=== PATIENT | female | born 1945 | race Caucasian/White ===

== ENCOUNTER 2023-08-12 23:46 | Emergency (ER) | payer MEDICARE, BC, SELFPAY ==
[2023-08-13 00:03] VITALS: BP 189/81; PULSE 72; RESP 20; TEMP 36.6; O2SAT 97; BMI 23.8
--- NOTE | 2023-08-13 00:48 | ECG_ITS ---
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 Repeat ECG is requested 9120 atypical ECG No previous ECG available for comparison Electronically Signed On 08-13-2023 18:43:59 EDT by SANDY SINGLETON
--- NOTE | 2023-08-13 00:48 | XR_ITS ---
The [address] [address] Patient Name: NAMRATA ALCALA MRN: [id number] date: 1945 Sex: F Assigned Patient Location: ER Current Patient Location: ER Accession/Order Number: [id number] Exam Date: 08/13/2023 00:48 Report Date: 08/13/2023 01:29 At the request of: CAROLIN COX Procedure: XR chest 1V EXAM: XR chest 1V HISTORY: CP COMPARISON: None. TECHNIQUE: One view of the chest was obtained. FINDINGS: A left chest cardiac pacemaker device is in place. The cardiac silhouette is normal in size. There is suspected atelectasis or scarring in the upper right lung. There is no significant pneumothorax or pleural effusion. No acute osseous abnormality is seen. XR/XR chest 1V IMPRESSION: 1. No acute cardiopulmonary abnormality. Electronically authenticated by: Nelida ZAMUDIO Date: 08/13/2023 01:29
[2023-08-13 01:15] LABS: Basophils Absolute Auto 0.1 10^3/uL (0.0-0.1); Basophils Percent Auto 0.8 % (0.2-2.0); Eosinophils Absolute Auto 0.2 10^3/uL (0.0-0.7); Eosinophils Percent Auto 3.2 % (0.9-7.0); Immature Granulocytes Abs Auto 0.03 10^3/uL (0.00-0.03); Immature Granulocytes Pct Auto 0.5 % (0.0-0.5); Lymphocytes Absolute Auto 2.7 10^3/uL (1.2-3.8); Lymphocytes Percent Auto 43.3 % (20.5-60.0); Mean Corpuscular HGB Conc 32.4 g/dL (29.9-35.2); Mean Corpuscular Hemoglobin 32.1 pg (26.7-34.0); Mean Corpuscular Volume 98.9 fL (81.0-99.0); Mean Platelet Volume 11.2 fL (9.5-13.5); Monocytes Absolute Auto 0.7 10^3/uL (0.3-0.8); Monocytes Percent Auto 11.5 % (1.7-12.0); Neutrophils Absolute Auto 2.5 10^3/uL (1.4-6.5); Neutrophils Percent Auto 40.7 % (43.0-75.0); Platelet Count 179 10^3/uL (150-450); Red Blood Count 3.74 10^6/uL (4.20-5.40); Red Cell Distribution Width 13.3 % (11.0-15.0); White Blood Count 6.2 10^3/uL (4.0-11.0)
[2023-08-13 01:19] VITALS: BP 164/80; PULSE 64; RESP 22; O2SAT 98
--- NOTE | 2023-08-13 01:22 | PC.NURSE ---
States had sudden onset of chest pressure. Took her B/P and it was high.
[2023-08-13 01:29] LABS: Anion Gap 10.1; Calcium 8.8 mg/dL (8.5-10.1); Carbon Dioxide 29.5 mmol/L (21.0-32.0); Chloride 105 mmol/L (98-107); Estimated GFR (African America >60 (>=60); Estimated GFR (Non-African Ame >60 (>=60); Glucose 96 mg/dL (74-106); Potassium 3.6 mmol/L (3.5-5.1); Sodium 141 mmol/L (136-145); Troponin I High Sensitivity 26.1 pg/mL (4.0-51.3)
--- NOTE | 2023-08-13 01:38 | PC.NURSE ---
Up to bathroom
--- NOTE | 2023-08-13 01:48 | ED_ITS ---
HPI - Chest Pain General Chief Complaint: Chest Pain Stated Complaint: Blood Pressure High Time Seen by Provider: 08/13/23 00:48 Source: patient Source comment: PATIENT Mode of arrival: walk-in Limitations: no limitations History of Present Illness HPI narrative: [age] she[age] female presented for tightness in her chest which has resolved. It started tonight about 11 PM and it resolved by the time she got here. A month ago she had a pacemaker placed in [place]. 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 She was not short of breath and had no back pain. She doesn't seem to have symptoms now in terms of chest pain but she was concerned about her blood pressure being high because she checked it at home and it was elevated. She's been taking all her medications as prescribed. Related Data Home Medications Medication Instructions Recorded Confirmed aspirin 81 mg capsule 81 mg PO DAILY 08/13/23 08/13/23 losartan 25 mg tablet mg 08/13/23 rosuvastatin 20 mg tablet mg 08/13/23 Allergies Allergy/AdvReac Type Severity Reaction Status Date / Time No Known Allergies Allergy Verified 08/13/23 00:10 Review of Systems ROS Narrative A ten point review of systems is negative except as noted above. PFSH PFSH Social History Smoking status: Never smoker Exam Narrative Exam Narrative: Nurses note and vital signs reviewed and patient is not hypoxic. General: The patient appears well and in no apparent distress. Patient is resting comfortably on cart. Skin: Warm, dry, no pallor noted. There is no rash noted. Head: Normocephalic, atraumatic Eye: Normal conjunctiva, no drainage Ears, Nose, Mouth, and Throat: oral mucosa is moist. Nares patent. Cardiovascular: Regular Rate and Rhythm Respiratory: Patient is in no distress, no accessory muscle use, lungs are clear to auscultation, no wheezing, rales or rhonchi Back: non-tender, no CVA tenderness bilaterally to percussion. GI: soft and nontender Musculoskeletal: The patient has no evidence of calf tenderness, no pitting edema, symmetrical pulses noted bilaterally Neurological: A&O, normal speech Psychiatric: Cooperative Constitutional Vital Signs, click to edit/add: Last Vital Signs Temp 97.8 F 08/13/23 00:03 Pulse 64 10/01/23 01:19 Resp 22 08/13/23 01:19 BP 164/80 H 08/13/23 01:19 Pulse Ox 98 08/13/23 01:19 O2 Del Method Room Air 08/13/23 01:19 Course Vital Signs Vital signs: Vital Signs Temperature 97.8 F 08/13/23 00:03 Pulse Rate 72 08/13/23 00:03 Respiratory Rate 20 08/13/23 00:03 Blood Pressure 189/81 H 08/13/23 00:03 Pulse Oximetry 97 08/13/23 00:03 Oxygen Delivery Method Room Air 08/13/23 00:03 Temperature 97.8 F 08/13/23 00:03 Pulse Rate 64 08/13/23 01:19 Respiratory Rate 22 08/13/23 01:19 Blood Pressure 164/80 H 08/13/23 01:19 Pulse Oximetry 98 08/13/23 01:19 Oxygen Delivery Method Room Air 08/13/23 01:19 MDM - Chest Pain MDM Narrative Medical decision making narrative: her workup including troponin is negative and her blood pressure is normalized without intervention and she remains asymptomatic. 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 Treatment diagnosis and follow-up were discussed with the patient. Differential Diagnosis Differential diagnosis: Likely pneumothorax, unstable angina pectoris, atypical chest pain, st elevation myocardial infarction, costochondritis and chest pain Lab Data Attestation: I reviewed the patient's lab results. Labs: Lab Results 08/13/23 Range/Units 01:05 WBC 6.2 (4.0-11.0) 10^3/uL RBC 3.74 L (4.20-5.40) 10^6/uL Hgb 12.0 (12.0-16.0) g/dL Hct 37.0 (36.0-48.0) % MCV 98.9 (81.0-99.0) fL MCH 32.1 (26.7-34.0) pg MCHC 32.4 (29.9-35.2) g/dL RDW 13.3 (11.0-15.0) % Plt Count 179 (150-450) 10^3/uL MPV 11.2 (9.5-13.5) fL Neut % (Auto) 40.7 L (43.0-75.0) % Lymph % (Auto) 43.3 (20.5-60.0) % Foster % (Auto) 11.5 (1.7-12.0) % Eos % (Auto) 3.2 (0.9-7.0) % Baso % (Auto) 0.8 (0.2-2.0) % Neut # (Auto) 2.5 (1.4-6.5) 10^3/uL Lymph # (Auto) 2.7 (1.2-3.8) 10^3/uL Foster # (Auto) 0.7 (0.3-0.8) 10^3/uL Eos # (Auto) 0.2 (0.0-0.7) 10^3/uL Baso # (Auto) 0.1 (0.0-0.1) 10^3/uL Abs Immat Gran (auto) 0.03 (0.00-0.03) 10^3/uL Imm/Tot Granulo (auto) 0.5 (0.0-0.5) % Sodium 141 (136-145) mmol/L Potassium 3.6 (3.5-5.1) mmol/L Chloride 105 (98-107) mmol/L Carbon Dioxide 29.5 (21.0-32.0) mmol/L Anion Gap 10.1 BUN 19.0 H (7.0-18.0) mg/dL Creatinine 0.73 (0.55-1.02) mg/dL Est GFR ( Amer) >60 (>=60) Est GFR (Non-Af Amer) >60 (>=60) BUN/Creatinine Ratio 26.0 Glucose 96 (74-106) mg/dL Calcium 8.8 (8.5-10.1) mg/dL Troponin I High Sens 26.1 (4.0-51.3) pg/mL Imaging Data Chest x-ray: Radiologist's impression: Procedure: XR chest 1V EXAM: XR chest 1V HISTORY: CP COMPARISON: None. TECHNIQUE: One view of the chest was obtained. FINDINGS: A left chest cardiac pacemaker device is in place. The cardiac silhouette is normal in size. There is suspected atelectasis or scarring in the upper right lung. There is no significant pneumothorax or pleural effusion. No acute osseous abnormality is seen. IMPRESSION: 1. No acute cardiopulmonary abnormality. Electronically authenticated by: Nelida ZAMUDIO Date: 08/13/2023 01:29 ECG Data Attestation: I personally reviewed and interpreted this ECG as follows: (paced rhythm) Heart Score History: Slightly/Non-Suspicious ECG: Normal Age: >65 years Risk Factors: 1 or 2 Risk Factors Troponin: <Normal Limit Total Heart Score Recommendations & Risks:: 3 Discharge Plan Discharge Chief Complaint: Chest Pain Clinical Impression: Chest pain, Hypertension Patient Disposition: Home, Self-Care Time of Disposition Decision: 01:44 Condition: Good Mode of Transportation: Private Vehicle Prescriptions / Home Meds: No Action losartan 25 mg tablet rosuvastatin 20 mg tablet aspirin 81 mg capsule 81 mg PO DAILY Instructions: Chest Pain (ED), Hypertension (ED) Stand Alone Forms: Portal Instructions Referrals: Physician,Non-Staff, MD [Primary Care Provider] - 1 week
[2023-08-13 01:50] VITALS: BP 148/78; PULSE 74; RESP 22
== END 2023-08-13 02:05 | disposition home or self-care (01) ==
PROVIDERS: Emergency Provider Emergency Medicine
DX: R07.9 Chest pain, unspecified (principal); I10 Essential (primary) hypertension; Z95.0 Presence of cardiac pacemaker; Z79.82 Long term (current) use of aspirin; Z79.899 Other long term (current) drug therapy
CPT/HCPCS: 36415; 71045; 80048; 84484; 85025; 93005; 99285

== ENCOUNTER 2025-07-26 07:35 | Outpatient (OUT) | payer MEDICARE, BC, SELFPAY ==
[2025-07-26 08:24] LABS: Hematocrit 38.0 % (36.0-48.0); Hemoglobin 12.9 g/dL (12.0-16.0); Immature Granulocytes Abs Auto 0.02 10^3/uL (0.00-0.03); Immature Granulocytes Pct Auto 0.3 % (0.0-0.5); Lymphocytes Absolute Auto 2.2 10^3/uL (1.2-3.8); Mean Corpuscular HGB Conc 33.9 g/dL (29.9-35.2); Mean Corpuscular Hemoglobin 31.9 pg (26.7-34.0); Mean Corpuscular Volume 94.1 fL (81.0-99.0); Platelet Count 175 10^3/uL (150-450); Red Blood Count 4.04 10^6/uL (4.20-5.40); White Blood Count 5.9 10^3/uL (4.0-11.0)
[2025-07-26 08:42] LABS: Alanine Aminotransferase 30 U/L (14-59); Albumin Globulin Ratio 1.1; Albumin Level 4.1 g/dL (3.4-5.0); Alkaline Phosphatase 77 U/L (46-116); Anion Gap 14.4; Aspartate Amino Transferase 33 U/L (15-37); Blood Urea Nitrogen 27.0 mg/dL (7.0-18.0); Calcium 9.1 mg/dL (8.5-10.1); Carbon Dioxide 28.0 mmol/L (21.0-32.0); Chloride 106 mmol/L (98-107); Cholesterol 154 mg/dL (<=200); Estimated GFR (African America >60 (>=60 mL/min/1.73m^2); Estimated GFR (Non-African Ame >60 (>=60 mL/min/1.73m^2); Globulin 3.7 g/dL; Glucose 105 mg/dL (74-106); HDL Cholesterol 78 mg/dL (40-60); Potassium 4.4 mmol/L (3.5-5.1); Sodium 144 mmol/L (136-145); Thyroid Stimulating Hormone 2.284 uIU/mL (0.358-3.740); Total Protein 7.8 g/dL (6.4-8.2); Triglycerides 38 mg/dL (<=150); VLDL CHOLESTEROL 7.6 mg/dL
[2025-07-28 01:06] LABS: Vitamin B12 802 pg/mL (232-1245)
== END 2025-07-26 07:36 | disposition home or self-care (01) ==
PROVIDERS: PCP Nurse Practitioner; Visit Provider Nurse Practitioner
DX: Z00.00 Encounter for general adult medical examination without abnormal findings (principal); Z13.220 Encounter for screening for lipoid disorders; R73.09 Other abnormal glucose; I10 Essential (primary) hypertension; E78.00 Pure hypercholesterolemia, unspecified; Z13.29 Encounter for screening for other suspected endocrine disorder; R53.83 Other fatigue; F41.9 Anxiety disorder, unspecified; Z13.21 Encounter for screening for nutritional disorder; E55.9 Vitamin D deficiency, unspecified
CPT/HCPCS: 36415; 80053; 80061; 82306; 82607; 84439; 84443; 85025

== ENCOUNTER 2025-10-03 19:25 | Emergency (ER) | payer MEDICARE, BC, SELFPAY ==
[2025-10-03 19:39] VITALS: BP 148/61; PULSE 80; TEMP 36.9; O2SAT 100; BMI 24.4
--- NOTE | 2025-10-03 21:43 | ED.GENADUL1 ---
HPI HPI - General Adult General Chief complaint: Skin/Abscess/Foreign Body Stated complaint: TICK BITE Time Seen by Provider: 10/03/25 21:41 Source: patient Mode of arrival: walk-in Limitations: no limitations History of Present Illness HPI narrative: 80-year-old female presents here with a chief complaint of a tick bite to the left breast, chest wall. Patient has small area of erythema noted where she pulled the chest skin to get a the tick removed. Patient presents here with a tick in an envelope the head is noted. She does not know how long the tick was stuck on her skin. She is otherwise healthy no complaints. Related Data Home Medications ?Medication ?Instructions ?Recorded ?Confirmed aspirin 81 mg capsule 81 mg PO DAILY 08/13/23 10/03/25 losartan 25 mg tablet 25 mg PO BID 08/13/23 10/03/25 rosuvastatin 20 mg tablet 20 mg PO QDAY 08/13/23 10/03/25 amlodipine 5 mg tablet 5 mg PO QDAY 10/03/25 10/03/25 Allergies Allergy/AdvReac Type Severity Reaction Status Date / Time No Known Drug Allergies Allergy Verified 10/03/25 19:37 Opioid HPI Opioid Management Most Recent Opioid Data: Last Pain Scale 5 10/03/25, 21:35 Review of Systems ROS Status of ROS 10 or more systems reviewed and unremarkable except as noted in history and below [facility] Medical History (Updated 10/03/25 @ 21:42 by Laure Telles) Pacemaker ?Z95.0 - Presence of cardiac pacemaker (ICD-10) Social History Smoking status: Never smoker Little interest or pleasure in doing things: not at all Feeling down, depressed, or hopeless: not at all Exam Narrative Exam Narrative: All Systems are negative except as noted/marked.All systems reviewed and otherwise negative Nurses note and vital signs reviewed and patient is not hypoxic. General: The patient appears well and in no apparent distress. Patient is resting comfortably on cart. Skin: Warm, dry, no pallor noted. redness to skin s/p tick bite Head: Normocephalic, atraumatic Eye: Normal conjunctiva, no drainage, EOMI. PERRL Ears, Nose, Mouth, and Throat: oral mucosa is moist. Nares patent. Mouth without vesicles. Ear canals patent. Tm's without Erythema Cardiovascular: Regular Rate and Rhythm Musculoskeletal: The patient has no evidence of calf tenderness, no pitting edema, symmetrical pulses noted bilaterally Neurological: A&O x4, normal speech Psychiatric: Cooperative Constitutional Vital Signs, click to edit/add: Last Vital Signs Temp 98.5 F 10/03/25 19:39 Pulse 80 10/03/25 19:39 Resp 12 10/03/25 19:39 BP 148/61 H 10/03/25 19:39 Pulse Ox 100 10/03/25 19:39 O2 Del Method Room Air 10/03/25 19:39 Course Vital Signs Vital signs: Vital Signs Temperature 98.5 F 10/03/25 19:39 Pulse Rate 80 10/03/25 19:39 Respiratory Rate 12 10/03/25 19:39 Blood Pressure 148/61 H 10/03/25 19:39 Pulse Oximetry 100 10/03/25 19:39 Oxygen Delivery Method Room Air 10/03/25 19:39 Temperature 98.5 F 10/03/25 19:39 Pulse Rate 80 10/03/25 19:39 Respiratory Rate 12 10/03/25 19:39 Blood Pressure 148/61 H 10/03/25 19:39 Pulse Oximetry 100 10/03/25 19:39 Oxygen Delivery Method Room Air 10/03/25 19:39 Medical Decision Making MDM Narrative Medical decision making narrative: 80-year-old female presents here with a chief complaint of a tick bite to the left breast, chest wall. Patient has small area of erythema noted where she pulled the chest skin to get a the tick removed. Patient presents here with a tick in an envelope the head is noted. She does not know how long the tick was stuck on her skin. She is otherwise healthy no complaints. Patient presented here chief complaint of tick bite to her chest wall. Small area erythema noted to the chest wall where she removed the tick. She did remove the tick in its entirety and she brought it in an envelope to show me. Patient does not know how long the tick was embedded in her skin and it appeared that when she removed it. Patiently placed on 200 mg of doxycycline x 1. Patient will follow-up with primary care physician as needed. Patient agrees with plan of care. Differential Diagnosis Differential Diagnosis: tick bite Medical Records Medical records reviewed: Yes I reviewed the patient's medical records Discharge Plan Discharge Chief Complaint: Skin/Abscess/Foreign Body Clinical Impression: Tick bite Patient Disposition: Home, Self-Care Time of Disposition Decision: 21:42 Condition: Good Prescriptions / Home Meds: No Action losartan 25 mg tablet 25 mg PO BID rosuvastatin 20 mg tablet 20 mg PO QDAY aspirin 81 mg capsule 81 mg PO DAILY amlodipine 5 mg tablet 5 mg PO QDAY Print Language: Albanian Instructions: Tick Bite (ED) Referrals: Anel Head NP [Primary Care Provider] - 1 week Discharge Date/Time: 10/03/25 21:58
[2025-10-03] MEDS: DOXYCYCLINE MONOHYDRATE 100 MG CAPSULE 200 MG PO (21:49)
--- OUTSIDE RECORDS SUMMARY | 2025-10-03 21:49 | XMS_ITS | Clinical Summary ---
Author Organization [employer] [facility] tem Address [id number] [address] 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 Role Phone Unavailable Primary Care Provider Unavailabl e Social History Tobacco UseTypesPacks/DayYears UsedDateSmoking Tobacco: Never Assessed CommentsUnknownSex and Gender InformationValueDate RecordedSex Assigned at Not on fileLegal GltBgtsyh82/14/2023 9:08 AM EDTGender IdentityNot on fileSexual OrientationNot on file Plan of Treatment Health MaintenanceDue DateLast DoneCommentsDepression Bmbqmjviu54/18/1958Tobacco Hhpghbwdm49/18/1958Fall Risk Ojwnigqpz99/18/2011Zoster (Shingles) Vaccine (2 of 3)RSV ( or age 60+ yrs) (1 - 1-dose 75+ series) 2021OVID-19 Vaccine ( - 2024- season), 03/15/2021, 02/22/2021Influenza Ggfhqmt69DTaP,Tdap and Td Vaccines (2 - Td or Tdap) Medical Devices Not on file Insurance * Guarantor: Nabeel Mallory TypeRelation to PatientDate of BirthPhone Billing AddressPersonal/VlzpydRrre1945 [address] [address]
--- OUTSIDE RECORDS SUMMARY | 2025-10-03 21:49 | XMS_ITS | Clinical Summary ---
Author Organization [facility] Address [facility] [place] [id number] Care Team Providers Care Coffee Maker Name Role Phone Francois Pérez MD Primary Care Provider [phone] Will Pearce MD Unavailable [phone] Allergies No known active allergies Medications MedicationSigDispense QuantityRefillsLast FilledStart DateEnd DateStatus aspirin 81 mg chewable tablet Take 1 tablet by mouth once daily. 30 tablet 07/13/2023 3:19 PM EDT07/13/2023ctive amLODIPine (NORVASC) 5 mg tablet Take 1 tablet by mouth once daily. 90 tablet ctive losartan (COZAAR) 50 mg tablet Indications:Hypertension, essentialTake 1 tablet by mouth two times a day. 180 tablet ctive rosuvastatin (CRESTOR) 20 mg tablet Take 1 tablet by mouth daily at bedtime. 90 tablet /ctive Active Problems ProblemNoted DateDiagnosed DateArterial cinjmhsivw92/27/2023ilateral carotid artery ofouogyz58/27/2023rterial bruit07/09/20237937Ojwnndomnttwwhonsvjh77/27/2023 Hypertension, bulnhcqno09/27/2023V block07/06/2023OE (dyspnea on exertion) 07/06/2023Other axbaryx1507/06/2023Mediastinal vqasxvhchd99/24/2023Hypertension 07/06/2023 Encounters DateTypeDepartmentCare OdcvHqgkeskzfdc33/25/2025Orders Only Pseud[place] [address] Will Pearce MD from Last 3 Months Family History Medical HistoryRelationCommentsProstate CancerBrother 1Heart diseaseFather Prostate CancerFatheranginaFatherpacemakerFatherBreast CancerMotherDiabetes MotherLung CancerMothersmokerMotherRelationStatusCommentsBrother 1AliveBrother 2 AliveBrother 3AliveFatherDeceasedMaternal GrandfatherDeceasedMaternal GrandmotherDeceasedMotherDeceasedPaternal GrandfatherDeceasedPaternal GrandmotherDeceasedSisterAlive Social History Tobacco UseTypesPacks/DayYears UsedDateSmoking Tobacco: NeverPassive Smoke Exposure: PastSmokeless Tobacco: Never Tobacco Cessation:Counseling Given: Not Answered Alcohol UseStandard Drinks/WeekCommentsYes0 (1 standard drink = 0.6 oz pure alcohol)rarelyPHQ-2AnswerDate RecordedPHQ-2 hnweg130/03/2024Area Deprivation IndexAnswerDate RecordedNational Score (1-100), lower number is lower risk60 07/06/2023State Score (1-10), lower number is lower pfpe3483Data from: https://www.neighborhoodatlas.medicine.[facility].edu/. Last address used for [address] [place] [address]CommentsNoSex and Gender Information ValueDate RecordedSex Assigned at BirthNot on fileLegal HtxLklvoj73/02/2012 9:08 AM ESTGender IdentityNot on fileSexual OrientationNot on file Last Filed Vital Signs Vital SignReadingTime TakenCommentsBlood Qmohtlba444/4605 2:26 PM EDT Gbavj5163 2:26 PM QTLCileiuztydk08 ??C (96.8 ??F)12/05/2023 9:05 AM EST Respiratory Xwyq034912/05/2023 9:55 AM ESTOxygen Xrbxjhpdmg69%04/09/2025 2:23 PM EDTInhaled Oxygen Concentration--Fvgsfg13 kg (141 lb 1.6 oz)04/09/2025 2:23 PM ELRCijnnt831.6 cm (5' 4 )04/09/2025 12:38 PM EDTBody Mass Index24.22004/09/2025 12:38 PM EDT Plan of Treatment DateTypeDepartmentCare Team (Latest Contact Info)Miyjwytzoel39/17/2025 10:45 AM ESTProcedure Cardiology [address] [place] [phone] Hypertension, acrqpxqvq01/17/2025 12:00 PM ESTOffice Visit Cardiology [address] [phone] Merlin Haynes MD [address] [facility] [address] [place] [phone] DX: Hypertension, jnbyxeoya51/19/2025 7:00 AM ESTNurse Visit Cardiology [address] [place], [place] [phone] SLS/PSR 07-811 Chart Review Y3 #1Health MaintenanceDue DateLast DoneComments Annual PCP Team Chronic Disease Visit1964Anxiety Tjlzzzfmp64/18/1964 Depression Cfschnqqd66/18/1964Hepatitis C Eslarbvrz22/18/1964Medicare Annual Wellness Visit09/13/2011Shingrix Vaccine (2 of 3)Advance Directive Zfqacuibqk75/01/2025Covid-19 Vaccine ( season)2025 10/10/2021, 03/15/2021, 02/22/2021Influenza Vaccine (#1)/05/2016 DTaP,Tdap,Td Vaccine (2 - Td or Tdap)Diabetes Screening 8004/09/2025, 10/16/2024, 07/09/2024, Additional history existsBone Density DrlvqzoidUtfgswmwm14/12/2021, 01/02/2019Pneumococcal Vaccine: 50+ Lgczexwbb02/12/2023, 07/21/2014RSV RlbbuilDmukkxeey89/26/2025 Goals GoalPatient Goal TypeAssociated ProblemsRecent ProgressPatient-Stated?Author Blood Pressure < 130/80 Blood Axyrcutw227/46(04/09/2025 2:26 PM EDT)Nicolacorneliusanna marie [employer] ImplantedTypeAreaManufacturerDevice IdentifierShelf Expiration DateModel / Serial / [id number] Selectsecure Mri Surescan [id number] Implanted:07/12/2023 (Quantity not on file)LeadMEDTRONIC [id number] SELECTSECURE MRI SURESCAN / [id number] / [id number] Capsurefix Novus [id number] Implanted:07/12/2023 (Quantity not on file)LeadMEDTRONIC [id number] CAPSUREFIX NOVUS / [id number] / Pacemaker-[id number] Mary [place] Xt Dr [id number] Implanted:07/12/2023 (Quantity not on file)PacemakerMEDTRONIC [id number] [place] XT [address] TAMAYO / [id number] / Procedures Procedure NamePriorityDate/TimeAssociated DiagnosisCommentsREM INTERROG PM/LDLS PM <90 D PHYS/TAZRsvvztt48/25/2025 1:39 AM EDT COMPREHENSIVE METABOLIC DUWBWMtdaxzr53/28/2025 8:37 AM EDT Fibromuscular dysplasia from Last 3 Months or Most Recently Relevant to Health Maintenance Results * CARDIAC IMPLANTABLE DEVICE CHECK REMOTE (07/07/2025 1:39 AM EDT)ComponentValue Ref RangeTest MethodAnalysis TimePerformed AtPathologist SignatureDate Time Interrogation [id number] CARDIACType Interrogation Session RemoteMURJ CARDIACImplantable Pulse Generator ManufacturerMedtronicMURJ CARDIACImplantable Pulse Generator TypePacemakerMURJ CARDIACImplantable Pulse Generator ModelAzure XT DR TAMAYO [id number] CARDIACImplantable Pulse Generator Serial [id number] CARDIACImplantable Pulse Generator Implant Date 11704774DACW CARDIACBattery Remaining Joixingdx428.0MURJ CARDIACBattery Voltage3.000MURJ CARDIACBattery HEAD SWAMPER Trigger2.625MURJ CARDIACBattery StatusOK MURJ CARDIACBrady Statistic RA Percent Paced9.86MURJ CARDIACBrady Statistic RV Percent Paced99.97MURJ CARDIACAtrial Tachy Statistic AT/AF Lostine Percent0.00 MURJ CARDIACLead Channel Sensing Intrinsic Amplitude1.250MURJ CARDIACLead Channel Setting Sensing Sensitivity0.30MURJ CARDIACLead Channel Impedance Xnlzr797VPHZ CARDIACLead Channel Pacing Threshold Amplitude0.375MURJ CARDIAC Lead Channel Pacing Threshold Pulse Width0.4MURJ CARDIACLead Channel Measurements Date and Looh8119-70-69RXIK CARDIACLead Channel Setting Pacing Amplitude1.500MURJ CARDIACLead Channel Setting Pacing Pulse Width0.4MURJ CARDIACLead Channel Sensing Intrinsic Drtsyoisp40.625MURJ CARDIACLead Channel Setting Sensing Sensitivity0.90MURJ CARDIACLead Channel Impedance Vbwzk573WRMU CARDIACLead Channel Pacing Threshold Amplitude1.250MURJ CARDIACLead Channel Pacing Threshold Pulse Width0.4MURJ CARDIACLead Channel Measurements Date and Rzng3847-90-04LDED CARDIACLead Channel Setting Pacing Amplitude2.500MURJ CARDIACLead Channel Setting Pacing Pulse Width0.4MURJ CARDIACBrady Setting Mode (NBG Code)DDDMURJ CARDIACBrady Setting Lower Rate Cwoqp65CYFE CARDIAC Trav Setting AT Mode Switch Hibk405DSWK CARDIACBrady Setting Maximum Tracking Usft079IXRC CARDIACBrady Setting Maximum Sensor Ornm397MPEU CARDIACBrady Setting PAV Qtawh662UFOA CARDIACBrady Setting JUDITH Itmaw601RBMW CARDIACLead Channel Setting Sensing PolarityBipolarMURJ CARDIACLead Channel Setting Sensing PolarityBipolarMURJ CARDIACLead Channel Setting Pacing PolarityBipolar MURJ CARDIACLead Channel Setting Pacing PolarityUnipolarMURJ CARDIACLead Channel Pacing Threshold PolarityBipolarMURJ CARDIACLead Channel Pacing Threshold PolarityUnipolarMURJ CARDIACZone Setting Type CategoryAT/AFMURJ CARDIACRate 1171MURJ CARDIACTherapiesSome Rx OffMURJ CARDIACZone Setting StatusMonitorMURJ CARDIACZone KW5APEG CARDIACZone Setting Type CategoryVTMURJ CARDIACRate 1150MURJ CARDIACZone Setting StatusENABLEDMURJ CARDIACZone VC4GWRY CARDIACImplantable Lead ManufacturerMedtronicMURJ CARDIACImplantable Lead Agwkh3427 SelectSecure MRI SureScanMURJ CARDIACImplantable Lead LocationRight VentricleMURJ CARDIACImplantable Lead Connection StatusConnectedMURJ CARDIAC Implantable Lead Serial AunyctOAS685924VQNSQ CARDIACImplantable Lead Implant [id number] CARDIACImplantable Lead ManufacturerMedtronicMURJ CARDIAC Implantable Lead Tlrax3193 CapSureFix NovusMURJ CARDIACImplantable Lead LocationRight AtriumMURJ CARDIACImplantable Lead Connection StatusConnected MURJ CARDIACImplantable Lead Serial AlxhwnKJLTCC233TTZUX CARDIACImplantable Lead Implant [id number] CARDIACSpecimen (Source)Anatomical Location / LateralityCollection Method / VolumeCollection TimeReceived Time07/07/2025 1:39 AM EDT Narrative MURJ CARDIAC - 07/31/2025 3:43 PM EDT Normal Remote: No Events * Normal Device Function * Alerts or events: None * Battery: OK, 8.42 yrs * Sensing, impedance and thresholds reviewed * Programmed parameters reviewed * Presenting rhythm reviewed AP/EMBOSSING PRESS OPERATOR * Heart Rate Histograms reviewed * No significant changes noted AP 9.9% EMBOSSING PRESS OPERATOR 100% NOTE TO PROVIDERS: Cardiac Implanted Devices Flowsheets contain detailed Programming and Evaluation data. Full Docket/PDF found below under Scanned Documents . Procedure Note Will Pearce MD - 07/31/2025 Normal Remote: No Events * Normal Device Function * Alerts or events: None * Battery: OK, 8.42 yrs * Sensing, impedance and thresholds reviewed * Programmed parameters reviewed * Presenting rhythm reviewed AP/EMBOSSING PRESS OPERATOR * Heart Rate Histograms reviewed * No significant changes noted AP 9.9% EMBOSSING PRESS OPERATOR 100% NOTE TO PROVIDERS: Cardiac Implanted Devices Flowsheets contain detailed Programming and Evaluation data. Full Docket/PDF found below under Scanned Documents . Authorizing ProviderResult TypeResult StatusOuskim Pearce MDCARDIOLOGYFinal ResultPerforming OrganizationAddressCity/State/ZIP CodePhone Number MURJ CARDIAC * COMPREHENSIVE METABOLIC PANEL (04/09/2025 8:37 AM EDT)ComponentValueRef Range Test MethodAnalysis TimePerformed AtPathologist SignatureProtein, Total6.96.3 - 8.0 g/dL04/09/2025 11:27 AM [facility] LABAlbumin4.43.9 - 4.9 g/dL04/09/2025 11:27 AM [facility] LABCalcium, Total9.98.5 - 10.2 mg/dL04/09/2025 11:27 AM [facility] LABBilirubin, Total0.50.2 - 1.3 mg/dL04/09/2025 11:27 AM [facility] LABAlkaline Lmvnypnudyw3749 - 123 U/L04/09/2025 11:27 AM [facility] UFEXXM2285 - 35 U/L04/09/2025 11:27 AM [facility] SFQKNC390 - 38 U/L04/09/2025 11:27 AM [facility] ZVYAhgtfgc3883 - 99 mg/dL04/09/2025 11:27 AM [facility] LABComment: The [place] Diabetes Association (ADA) provides guidance for cutoff values for fasting glucose andrandom glucose. The ADA defines fasting as no caloric intake for at least 8 hours. Fasting plasma glucose results between 100 to 125 mg/dL indicate increased risk for diabetes (prediabetes). Fasting plasma glucose results greater than or equal to 126 mg/dL meet the criteria for diagnosis of diabetes. In the absence of unequivocal hyperglycemia, results should be confirmed by repeat testing. In a patient with classic symptoms of hyperglycemia or hyperglycemic crisis, random plasma glucose results greater than or equal to 200 mg/dL meet the criteria for diagnosis of diabetes. Reference: Standards of Medical Care in Diabetes 2016, [place] Diabetes Association. Diabetes Care. 2016.39(Suppl 1). BCL964 - 21 mg/dL04/09/2025 11:27 AM [facility] Creatinine0.740.58 - 0.96 mg/dL04/09/2025 11:27 AM [facility] BLQWbyhrm155610 - 144 mmol/L04/09/2025 11:27 AM [facility] LABPotassium4.93.7 - 5.1 mmol/L04/09/2025 11:27 AM [facility] ZSIQqviwkay11181 - 107 mmol/L04/09/2025 11:27 AM [facility] HISHB19047 - 30 mmol/L04/09/2025 11:27 AM [facility] LABAnion Xdh987 - 15 mmol/L04/09/2025 11:27 AM [facility] LABEstimated Glomerular Filtration Rate83>=60 mL/min/1.73m 04/09/2025 11:27 AM [facility] LABComment:Estimated Glomerular Filtration Rate (eGFR) is calculated using the 2020 CKD-EPI creatinine equation. This equation utilizes serum creatinine, sex, and age as parameters. The creatinine assay has traceable calibration to isotope dilution- mass spectrometry. Refer to KDIGO guidelines for clinical interpretation. In patients with unstable renal function, e.g. those with acute kidney injury, the eGFRmay not accurately reflect actual GFR.Specimen (Source)Anatomical Location / LateralityCollection Method / VolumeCollection TimeReceived TimeBloodBLOOD SPECIMEN / UnknownVenipuncture / Qobxbuq1504/09/2025 8:37 AM EDT04/09/2025 8:37 AM EDT Narrative Authorizing ProviderResult TypeResult StatusNatalia Danita Sierra MD LABORATORYFinal ResultPerforming OrganizationAddressCity/State/ZIP CodePhone Number [facility] [address] [place] [address], from Last 3 Months or Most Recently Relevant to Health Maintenance Insurance * Guarantor: Rachel Ceballos TypeRelation to PatientDate of BirthPhone Billing AddressPersonal/ShpfdiNhuo1945 [address] [place] [phone] Advance Directives * Full Code (Latest Code Status on File) Date ActivatedDate InactivatedComments07/06/2023 7:11 AM07/13/2023 6:14 PMQuestion AnswerCommentsFull Code Order Discussed With:* Patient Care Teams Team MemberRelationshipSpecialtyStart DateEnd Date Francois Pérez MD PCP - GeneralFamily Medicine07/06/23 Will Pearce MD [address] [place] [address] Primary Staff PhysicianCardiology04/30/24
--- OUTSIDE RECORDS SUMMARY | 2025-10-03 21:49 | XMS_ITS | Clinical Summary ---
Author Organization [facility] Address [address] [place] [address] Phone Care Team Providers Care Information Clerk Brokerage Name Role Phone Francois Pérez MD Primary Care Provider Social History Tobacco UseTypesPacks/DayYears UsedDateSmoking Tobacco: Never Assessed CommentsUnknownSex and Gender InformationValueDate RecordedSex Assigned at Not on fileLegal PyfScyiey26/26/2022 4:38 AM ESTGender IdentityNot on fileSexual OrientationNot on file Plan of Treatment Not on file Care Teams Team MemberRelationshipSpecialtyStart DateEnd Date Francois Pérez MD [address] [place] [phone] PCP - Qcnfnaw92/11/18
--- OUTSIDE RECORDS SUMMARY | 2025-10-03 21:49 | XMS_ITS | Clinical Summary ---
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 Name Role Phone Francois Pérez MD Primary Care Provider Francois Pérez MD Unavailable [phone] Anel Head NP Unavailable [phone] Allergies No known active allergies Medications MedicationSigDispense QuantityRefillsLast FilledStart DateEnd DateStatus B Complex Vitamins (B COMPLEX 1 PO) B ComplexActive Multiple Vitamins-Minerals (PRESERVISION/LUTEIN PO) PreserVision/LuteinActive aspirin 81 MG chewable tablet Chew 81 mg in the morning.07/13/2023ctive clobetasol (Temovate) 0.05 % ointment Indications:Psoriasis vulgarisApply to affected areas, up to twice a day when flared, do not use one the face, groin, or underarms, 30 day supply 30 g 1104Active amLODIPine (Norvasc) 5 MG tablet Indications:Hypertension, essentialTake 1 tablet (5 mg) by mouth in the morning. 90 tablet ctive losartan (Cozaar) 50 MG tablet Indications:Hypertension, essentialTake 1 tablet (50 mg) by mouth in the morning and 1 tablet (50 mg) before bedtime. 180 tablet ctive rosuvastatin (Crestor) 20 MG tablet Indications:HypercholesterolemiaTake 1 tablet (20 mg) by mouth at bedtime 90 tablet 309/ctive Active Problems ProblemNoted DateDiagnosed DateFibromuscular ikzzfbpgr35/04/2024 Msdryggasffermlkvdgt27/27/2023Hypertension, luhdjgkoi88/24/2023iverticular szzfohg5304/25/20233406Jyghzlonlx22/13/2023Vitamin D xhfaymxhug65/13/2023 Resolved Problems ProblemNoted DateDiagnosed DateResolved DateAtrophy of jjvwmj6604/25/2023 07/13/2023Female wkgsgbtgk19Fibrocystic breast changes soriasis azhbeduq05 Encounters DateTypeDepartmentCare CqnhCszdzvjatdh46/16/2025Results Follow-Up [facility] [address] [place] [phone] Anel Head NP POCT urinalysis dipstick manually resulted, Lipid panel, Comprehensive metabolic panel, Additional followed-up results: bstract [facility] [address] [place] [phone] Francois Pérez MD 07/16/2025 10:00 AM EDTOffice Visit [facility] [address] [place] [phone] Anel Head NP Encounter for vitamin deficiency screening (Primary Dx); Urinary frequency; Screening for lipid disorders; Adult general medical examination; Screening for thyroid disorder; Elevated glucose; Other fatigue; Hypertension, essential ; Hypercholesterolemia ; Vitamin D deficiency; Anxiety; Impaired fasting glucose; Routine general medical examination at health care ucimpxqr13/03/2025amboo flowsheet [facility] [address] [place] [phone] Anel Head NP 07/16/20253817Imxbzj69/02/5353Gaemqe92/26/2025Telephone [facility] [address] [place] [phone] Anel Head NP Medicare Annual Wellness Visit Subsequentfrom Last 3 Months Immunizations ImmunizationAdministration DatesNext DueInfluenza, High Dose Seasonal, Preservative Free08/19/2016Pneumococcal Conjugate PCV 3Pneumococcal Polysaccharide [id number], recombinant, protein subunit RSVpreF, adjuvant reconstitu, 120mcg/0.5mL, PF (Arexvy)12/08/2024Tdap1Zoster, live08/17/2016 Family History Medical HistoryRelationNameCommentsProstate cancerFatherBreast cancerMotherMary CullenLung cancerMotherMary CullenStrokeMotherMary CullenRelationNameStatus PjhgpspdYdslccqPeslgx0WpcmbevlOskroKrdzizAifluuemVsckuoDmfq CullenDeceasedSister AliveSonAlivex3 Social History Tobacco UseTypesPacks/DayYears UsedDateSmoking Tobacco: NeverSmokeless Tobacco: Never Tobacco Cessation:Counseling Given: Not Answered Comments:None Alcohol UseStandard Drinks/WeekCommentsNot Currently0 (1 standard drink = 0.6 oz pure alcohol)[id number] Health LiteracyAnswerDate RecordedHow often do you need to have someone help you when you read instructions, pamphlets, or other written material from your doctor or pharmacy?Never07/15/2025Humiliation, Afraid, Rape, and Kick questionnaireAnswerDate RecordedWithin the last year, have you been afraid of your partner or ex-partner?No07/15/2025Within the last year, have you been humiliated or emotionally abused in other ways by your partner or ex-partner?No07/15/2025Within the last year, have you been kicked, hit, slapped, or otherwise physically hurt by your partner or ex-partner?No07/15/2025Within the last year, have you been raped or forced to have any kind of sexual activity by your partner or ex-partner?No07/15/2025Social Connection and Isolation Panel AnswerDate RecordedIn a typical week, how many times do you talk on the phone with family, friends, or neighbors?More than three times a week07/15/2025How often do you get together with friends or relatives?Three times a week07/15/2025 How often do you attend baptist or advent services?More than 4 times per year 07/15/2025Do you belong to any clubs or organizations such as baptist groups, unions, fraternal or athletic groups, or school groups?No07/15/2025How often do you attend meetings of the clubs or organizations you belong to?Never07/15/2025 Are you , , , , never , or living with a partner?Xqnratq5707/15/2025UDIT-CAnswerDate RecordedQ1: How often do you have a drink containing alcohol?Never07/15/2025Q2: How many drinks containing alcohol do you have on a typical day when you are drinking?Patient does not drink 07/15/2025Q3: How often do you have six or more drinks on one occasion?Never 07/15/2025Overall Financial Resource Strain (CARDIA)AnswerDate RecordedHow hard is it for you to pay for the very basics like food, housing, medical care, and heating?Not hard at all07/15/2025PHQ-2AnswerDate RecordedPatient Health Questionnaire-2 Aedoz269Fincentral [facility] medical center [place] of Occup[facility] - Occupational Stress QuestionnaireAnswerDate RecordedDo you feel stress - tense, restless, nervous, or anxious, or unable to sleep at night because yourmind is troubled all the time - these days?Not at all07/15/2025Exercise Vital SignAnswer Date RecordedOn average, how many days per week do you engage in moderate to strenuous exercise (like a brisk walk)?7 days07/15/2025On average, how many minutes do you engage in exercise at this level?30 min07/15/2025Hunger Vital SignAnswerDate RecordedWithin the past 12 months, you worried that your food would run out before you got the money to buymore.Never true07/15/2025Within the past 12 months, the food you bought just didn't last and you didn't have money to get more.Never true07/15/2025PRAPARE - TransportationAnswerDate RecordedIn the past 12 months, has lack of transportation kept you from medical appointments or from getting medications?No07/15/2025In the past 12 months, has lack of transportation kept you from meetings, work, or from getting things needed for daily living?No07/15/2025Housing Stability Vital SignAnswerDate RecordedIn the last 12 months, was there a time when you were not able to pay the mortgage or rent on time?No06/06/2023In the last 12 months, how many places have you lived?In the last 12 months, was there a time when you did not have a steady place to sleep or slept in [facility] (including now)?No 06/06/2023Housing Stability Vital SignAnswerDate RecordedIn the last 12 months, was there a time when you were not able to pay the mortgage or rent on time?No 07/15/2025In the past 12 months, how many times have you moved where you were living?t any time in the past 12 months, were you homeless or living in a longterm (including now)?No07/15/2025CommentsNoSex and Gender InformationValueDate RecordedSex Assigned at BrazxTtyyil77/12/2023 9:41 AM EDT Legal GxaVvkdnm35/15/2023 7:21 PM EDTGender GseuybtwUygahj08/12/2023 9:41 AM EDT Sexual XtpxjbqbgulEflpqhxb66/12/2023 9:41 AM EDT Last Filed Vital Signs Vital SignReadingTime TakenCommentsBlood Msbdkrml858/8009 10:19 AM EDT Xrkvx198407/16/2025 10:19 AM ZXPTypdmivghok19.6 ??C (97.9 ??F)07/16/2025 10:19 AM EDTRespiratory Rawh363907/16/2025 10:19 AM EDTOxygen Xybgqgbwpz08%07/16/2025 10:19 AM EDTInhaled Oxygen Concentration--Ntxndn44 kg (139 lb)07/16/2025 10:19 AM EDT Gcbgtz509.9 cm (5' 1 )07/16/2025 10:19 AM EDTBody Mass Index26.26007/16/2025 10:19 AM EDT Plan of Treatment DateTypeDepartmentCare Team (Latest Contact Info)Qenbneyxjmx59/29/2026 9:00 AM EDTOffice Visit [facility] [place] [facility] [address] [place] [address] Radha Cortez DO [address] [place] [address] Health MaintenanceDue DateLast DoneCommentsCOVID-19 Vaccine ( season) , 03/15/2021, 02/22/2021Influenza Vaccine (#1)2026 08/19/2016Postponed from 07/14/2025 (Patient Refused)Medicare Annual Wellness (AWV), 04/08/2025, 06/21/2024, Additional history exists Pneumococcal Vaccine: 65+ RzfzkKzztohymc40/12/2023, 07/21/2014 Procedures Procedure NamePriorityDate/TimeAssociated DiagnosisCommentsVITAMIN Q98Lxoujjw 07/28/2025 8:24 AM EDT Encounter for vitamin deficiency screening Other fatigue Anxiety WKOBmqcrdm35/13/2025 7:32 PM EDT Screening for thyroid disorder Other fatigue Anxiety CBC WITH AUTO FVFDKYNRLOPFXjvcbwu65/13/2025 7:32 PM EDT Adult general medical examination Elevated glucose Hypertension, essential COMPREHENSIVE METABOLIC DXDHLCypkvqy68/13/2025 7:32 PM EDT Adult general medical examination Elevated glucose Hypertension, essential LIPID AXUOCNchudcn40/13/2025 7:32 PM EDT Screening for lipid disorders Elevated glucose Hypertension, essential Hypercholesterolemia T4, PVJZQgzoznl14/13/2025 7:29 PM EDT Screening for thyroid disorder Other fatigue Anxiety VITAMIN D 25 HYDROXY ZYKVHWhdqgxf17/13/2025 7:29 PM EDT Encounter for vitamin deficiency screening Other fatigue Vitamin D deficiency Anxiety POCT URINALYSIS YGTPVBNYEewyrfu78/03/2025 11:13 AM EDT Urinary frequency from Last 3 Months Results * Vitamin B12 (07/28/2025 8:24 AM EDT)Specimen (Source)Anatomical Location / LateralityCollection Method / VolumeCollection TimeReceived TimeBloodVenous blood specimen / Unknown Narrative Authorizing ProviderResult TypeResult StatusJessica R Lause NPLAB BLOOD ORDERABLESFinal ResultPerforming OrganizationAddressCity/State/ZIP CodePhone Number [address] [place] [address], * CBC auto differential (07/26/2025 7:32 PM EDT)Specimen (Source)Anatomical Location / LateralityCollection Method / VolumeCollection TimeReceived Time BloodVenous blood specimen / Unknown Narrative Authorizing ProviderResult TypeResult StatusJessica R Lause NPLAB BLOOD ORDERABLESFinal ResultPerforming OrganizationAddressty/[facility] CodePhone Number [address] [place] [address], [place] * TSH (07/26/2025 7:32 PM EDT)Specimen (Source)Anatomical Location / Laterality Collection Method / VolumeCollection TimeReceived TimeBloodVenous blood specimen / Unknown Narrative Authorizing ProviderResult TypeResult StatusJessica R Lause NPLAB BLOOD ORDERABLESFinal ResultPerforming OrganizationAddressty/State/[facility] CodePhone Number [address] [address], * Lipid panel (07/26/2025 7:32 PM EDT)Specimen (Source)Anatomical Location / LateralityCollection Method / VolumeCollection TimeReceived TimeBloodVenous blood specimen / Unknown Narrative Authorizing ProviderResult TypeResult StatusJessica R Lause NPLAB BLOOD ORDERABLESFinal ResultPerforming OrganizationAddPottstown [facility] CodePhone Number [place] [address] [place] [address], * Comprehensive metabolic panel (07/26/2025 7:32 PM EDT)Specimen (Source) Anatomical Location / LateralityCollection Method / VolumeCollection Time Received TimeBloodVenous blood specimen / Unknown Narrative Authorizing ProviderResult TypeResult StatusAnel Vacause NPLAB BLOOD ORDERABLESFinal ResultPerforming OrganizationAddressty/[facility]ettPhone Number [address] [address] [place] [address], [place] * Vitamin D 25 hydroxy Total (07/26/2025 7:29 PM EDT)Specimen (Source)Anatomical Location / LateralityCollection Method / VolumeCollection TimeReceived Time BloodVenous blood specimen / Unknown Narrative Authorizing ProviderResult TypeResult StatusJejose Vacause NPLAB BLOOD ORDERABLESFinal ResultPerforming OrganizationAddPottstown Hospital/[facility]ettPhone Number [address] [address] [place] [address], [place] * T4, free (07/26/2025 7:29 PM EDT)Specimen (Source)Anatomical Location / LateralityCollection Method / VolumeCollection TimeReceived TimeBloodVenous blood specimen / Unknown Narrative Authorizing ProviderResult TypeResult StatusJejose Ryan Lause NPLAB BLOOD ORDERABLESFinal ResultPerforming OrganizationAddPottstown Hospital/[facility]ettPhone [place] [address] [place] [address], [place] * POCT urinalysis dipstick manually resulted (07/16/2025 11:13 AM EDT)Component ValueRef RangeTest MethodAnalysis TimePerformed AtPathologist SignatureColor, UAYellowClarity, UAClearGlucose, UANegativeNegative - 2000(110) ++++ mg/dL Bilirubin, UANegativeNegative - 4(70) +++ mg/dLKetones, UANegativeNegative - 160(16) ++++ mg/dLSpec Grav, UA1.0151 - 1.03Blood, UANegativeNegative - 50 Ryan/mcLpH, UA5.55 - 9Protein, UANegativeNegative - 2000(20) ++++ mg/dL Urobilinogen, UA0.20.2 - 12 mg/dLLeukocytes, UANegativeNegative - 500+++ Nir/mcLNitrite, UANegativeNegative - PositiveSpecimen (Source)Anatomical Location / LateralityCollection Method / VolumeCollection TimeReceived Time Urine07/16/2025 11:13 AM EDT Narrative Authorizing ProviderResult TypeResult StatusJessica Shelby Head NPPOINT OF CARE TEST ENTER/EDIT ORDERABLESFinal Result from Last 3 Months Insurance Care Teams Team MemberRelationshipSpecialtyStart DateEnd Date Francois Pérez MD [address] [place] [address] PCP - GeneralFamily Medicine06/05/23 Francois Pérez MD [address] [place] [place] [address] PCP - [facility]01/12/24 Anel Head NP [address] [place] [address] [facility]er[facility]07/08/25
--- OUTSIDE RECORDS SUMMARY | 2025-10-03 21:49 | XMS_ITS | Patient Health Record ---
Author Organization [facility] [place] Address [address] [place] [address] Support Name Relationship Address Phone Mayito Ceballos Emergency Contact Unknown Mayito Cole Guarantor Unknown Reason For Referral No Information Plan Of Treatment No Information Insurance Providers Payer Name Payer Address Payer Phone Subscriber Number Group Number Insured Name Patient Relationship to Insured Coverage Start Date Coverage End Date SELF PAY ON PATIENT DEMOGRAPHICS Derik Cole - patient is the [id number]/20/2008
== END 2025-10-03 21:58 | disposition home or self-care (01) ==
PROVIDERS: Emergency Provider Internal Medicine; PCP Nurse Practitioner
DX: S20.162A Insect bite (nonvenomous) of breast, left breast, initial encounter (principal); W57.XXXA Bitten or stung by nonvenomous insect and other nonvenomous arthropods, initial encounter
CPT/HCPCS: 99283